=== PATIENT | female | born 1940 | race Caucasian/White ===

== ENCOUNTER 2016-11-29 11:57 | Emergency (ER) | payer OTHER ==
--- NOTE | 2016-11-29 16:23 | DIAGNOSTIC IMAGING REPORT ---
PROCEDURE: XR CHEST 1 VIEW INDICATION: POST CENTRAL LINE TECHNIQUE: Portable AP view 03:52 p.m. COMPARISON: None available FINDINGS: There is a new central line on the right. The tip is in the SVC. There is no pneumothorax. Lungs are clear. Heart is mildly enlarged. Thorax is normal. IMPRESSION: 1. New central line on the right. Tip in the SVC. 2. Mild cardiomegaly. Lungs clear.
--- NOTE | 2016-11-29 16:34 | ED CLINICAL REPORT ---
Clinical Report - Physicians/Mid Levels [facility] [address] [place] [address] 11/29/2016 11:59 Patient: DARI MEHTA Time Seen: 12:16. Arrived- By ambulance. Historian- patient, EMS personnel and family. HISTORY OF PRESENT ILLNESS Chief Complaint: VOMITING. This started yesterday and is still present but is better now. No recent travel. She has had nausea and vomiting. No diarrhea, black stools, bloody stools, abdominal pain or constipation. No flank pain, history of possible bad food exposure, known contact with a sick individual or change in routine. Has not recently been camping or on antibiotics. The illness is described as moderate. (Pt states that she had a flu shot several days ago, and started noticing that it was hard to keep her sugars down. Pt states she was not feeling ill in any other way. Pt states that she started vomiting yesterday. Sons state pt has had periods of confusion on and off since yesterday. Per medics, pt's daughter gave her "3 clicks" of her insulin before transport (they do not know how many units/click), but pt's BS is still reading >500.). Similar symptoms previously: Recent medical care: Not recently seen/assessed. REVIEW OF SYSTEMS No fever, muscle aches, difficulty with urination, dark urine or headache. No dizziness, sore throat, cough, chest pain or difficulty breathing. No excessive urination, skin rash, jaundice, back pain or fainting episodes. No blurred vision. All systems otherwise negative, except as recorded above. PAST HISTORY Problems: Thyroid Disease. Hypertension. Diabetes Mellitus Type 2. Additional Surgeries: no known surgeries. Medications: Levothyroxine 50 mcg daily. Metformin 500 mg daily. Lisinopril 20 mg daily. Allergies: No Known Drug Allergy. SOCIAL HISTORY Never smoker. No alcohol use or drug use. ADDITIONAL NOTES The nursing notes have been reviewed. PHYSICAL EXAM Vital Signs: 11/29/2016 12:06 BP: 106/58. HR: 108. RR: 20. O2 saturation: 95%. Temp: 98.6 F. Pain level now: 0/10. Have been reviewed. Appearance: Alert. Oriented X3. No acute distress. Eyes: Pupils equal, round and reactive to light. Eyes normal inspection. ENT: Nose normal. Neck: Normal inspection. Neck supple. CVS: Normal heart rate and rhythm. Heart sounds normal. Pulses normal. Respiratory: No respiratory distress. Breath sounds normal. Abdomen: Soft and nontender. Back: Normal inspection. No CVA tenderness. Skin: Skin warm and dry. Normal skin color. No rash. Normal skin turgor. Extremities: Extremities exhibit normal ROM. No lower extremity edema. Neuro: Oriented X 3. No motor deficit. No sensory deficit. LABS, X-RAYS, AND EKG EKG: EKG time: (1241). Rate: 102. Regular narrow-complex tachycardia. Sinus tachycardia. Normal P waves. Normal HEIDY. Normal axis. Normal QT and QTc. Marked ST depression in lead II, V3, V4, V5 and V6 (2 mm). Prior EKG unavailable. The study has been interpreted contemporaneously by me. The study has been independently viewed by me. The EKG appears to be a good tracing. EKG #2: Rate: 102. Regular narrow-complex tachycardia. Sinus tachycardia. Normal P waves. Normal QRS complex. Normal axis. Normal QT and QTc. Marked ST depression in lead II, V3, V4, V5 and V6 (2 mm). EKG unchanged when compared with prior EKG. The study has been interpreted contemporaneously by me. The study has been independently viewed by me. The EKG appears to be a good tracing. I agree with and confirm the computer reading of the EKG. Rhythm Strip #1: Time: (1216). Rate= 105. Sinus tachycardia. Regular rhythm. Narrow QRS complexes. No ectopy. Conduction normal. Normal ST segments and T waves. The study was interpreted by me. Chest X-ray: No acute disease. Normal lung markings present. Normal heart size. Mediastinum normal. Great vessels normal. Soft tissues normal. No infiltrate. No fracture. No bony lesion present. (R subclavian central line is in good placement.). Views: AP (portable). Technique: good. The X-rays were independently viewed by me, interpreted by the radiologist and contemporaneously by me and discussed with the radiologist. Prior films were not available for comparison. Laboratory Tests: UA-Culture if indicated: (BRENNAN: 11/29/2016 13:00) ( [facility] 11/29/2016 13:32) Final results Test Result Flag Units (Reference) URINE COLOR YELLOW URINE APPEARANCE CLEAR URINE GLUCOSE 3+ (NEGATIVE) URINE BILIRUBIN NEGATIVE (NEGATIVE) URINE KETONE 3+ (NEGATIVE) URINE SPECIFIC GRAVITY 1.015 (1.010-1.030) URINE PH 5.5 (5.0-8.0) URINE PROTEIN NEGATIVE (NEGATIVE) URINE UROBILINOGEN 0.2 EU/dL (0.2-1.0) URINE NITRITE NEGATIVE (NEGATIVE) URINE BLOOD 1+ (NEGATIVE) URINE LEUK ESTERASE NEGATIVE (NEGATIVE) URINE RBC 0-1 rbc/hpf (0-1) URINE WBC 1-3 wbc/hpf (0-1) URINE EPITHELIAL CELLS 1-3 EPI/hpf (0-5) URINE BACTERIA TRACE (<1+) (NONE SEEN) URINE COMMENT CULT NOT INDICATED URINE CULTURES ARE SET-UP BASED ON THE FOLLOWING CRITERIA:POSITIVE NITRITEPOSITIVE LEUKOCYTE ESTERASEGREATER THAN 10 WHITE BLOOD CELLSMODERATE (2+) OR GREATER BACTERIA CBC w Diff: (BRENNAN: 11/29/2016 12:05) ( [facility] 11/29/2016 12:37) Final results Test Result Flag Units (Reference) WHITE BLOOD COUNT 14.6 H K/uL (4.5-11.5) RED BLOOD COUNT 4.11 M/uL (4.00-5.20) HEMOGLOBIN 12.7 gm/dL (12.0-16.0) HEMATOCRIT 39.0 % (36.0-46.0) MEAN CELL VOLUME 95 fL (80-100) MEAN CORPUSCULAR HGB 31 pg (26-34) MEAN CORPUSCULAR HGB CONC 33 g/dL (31-37) RED CELL DISTRIBUTION WIDTH 14.0 % (11.6-14.8) PLATELET COUNT 255 K/uL (150-400) NEUTROPHIL % 93.3 H % (50-75) LYMPH % 4.4 L % (25-40) MONO % 2.2 L % (3-14) EOSINOPHIL % 0.1 % (0-4) BASOPHIL % 0 % (0-2) PT with INR: (BRENNAN: 11/29/2016 12:05) ( [facility] 11/29/2016 16:36) Final results Test Result Flag Units (Reference) INR 1.0 (0.8-1.2) Low Intensity Therapy: INR 1.5-2.0 PT range 18.5-23.1Mod.Intensity Therapy: INR 2.0-3.0 PT range 23.1-31.5High Intensity Therapy: INR 2.5-3.5 PT range 27.4-35.5High Intensity Therapy 2: INR 3.0-4.0 PT range 31.5-39.3 APTT 25 SECONDS (24-34) Troponin-I: (BRENNAN: 11/29/2016 14:35) ( [facility] 11/29/2016 15:07) Final results Test Result Flag Units (Reference) TROPONIN I 7.44 H ng/mL (0.00-1.5) CRITICAL RESULTS CALLEDCalled to JUANITO KELLEY ED 11/29/16 [id number] 2 patient identifiers used? YWas the result read back? YTROPONIN REFERENCE RANGE:<0.1 NEGATIVE0.1-1.5 INDETERMINANT>1.5 POSITIVE CPK: (BRENNAN: 11/29/2016 12:45) ( [facility] 11/29/2016 13:11) Final results Test Result Flag Units (Reference) CPK 91 U/L (24-260) TROPONIN I 1.04 ng/mL (0.00-1.5) TROPONIN REFERENCE RANGE:<0.1 NEGATIVE0.1-1.5 INDETERMINANT>1.5 POSITIVE CMP: (BRENNAN: 11/29/2016 12:05) ( [facility] 11/29/2016 13:16) Final results Test Result Flag Units (Reference) GLUCOSE 594 *H mg/dL (70-110) CRITICAL RESULTS CALLEDCalled to ELVER CASHIER MANAGER 11/29/16 1309Were 2 patient identifiers used? YWas the result read back? Y BUN 29 H mg/dL (7-18) CREATININE 1.5 H mg/dL (0.6-1.3) Estimated GFR 35.98 mL/min Estimated GFR- 43.61 mL/min Note: Persistent reduction over 3 months in eGFR<60 mL/min/1.73 m2 defines CKD. Patients with eGFR values>=60 mL/min/1.73 m2 may also have CKD if evidence ofpersistent proteinuria. Additional information may be foundat [email or web address].org. SODIUM 140 mmol/L (136-145) POTASSIUM 5.0 mmol/L (3.5-5.1) CHLORIDE 99 mmol/L (98-107) CARBON DIOXIDE 10 *L mmol/L (21-32) CRITICAL RESULTS CALLEDCalled to ELVER CASHIER MANAGER 11/29/16 [id number] 2 patient identifiers used? YWas the result read back? Y CALCIUM 10.2 H mg/dL (8.5-10.1) TOTAL PROTEIN 6.9 g/dL (6.4-8.2) ALBUMIN 3.4 g/dL (3.3-5.0) BILIRUBIN, TOTAL 0.9 mg/dL (0.0-1.0) ALKALINE PHOSPHATASE 89 U/L (46-116) AST (SGOT) 26 U/L (15-37) ALT (SGPT) 18 U/L (12-78) ACETONE, SERUM QUALITATIVE POSITIVE (NEGATIVE) SMALL ABG: (BRENNAN: 11/29/2016 14:01) ( [facility] 11/29/2016 14:40) Final results Test Result Flag Units (Reference) FIO2 21 % (20-101) ABG MODE OF DELIVERY RA MODIFIED KALLIE TEST POSITIVE? YES ARTERIAL BLOOD GAS SITE LR ARTERIAL BLOOD GAS pH 7.15 *L (7.35-7.45) ABG PCO2 19.8 *L mmHg (35-45) ABG PO2 117.0 H mmHg (60.0-80.0) ABG BASE EXCESS -20.1 *L mmol/L (-6.0--6.0) ABG HCO3 6.9 *L mmol/L (20.0-26.0) ABG TCO2 7.6 *L mmol/L (24.0-30.0) ABG SAT O2 98.5 % (95.1-100.0) ABG TOTAL HEMOGLOBIN 11.4 L g/dL (12.0-16.0) ABG O2 HEMOGLOBIN 96.7 % (95.0-100.0) ABG CARBOXYHEMOGLOBIN 1.5 % (0.5-1.5) ABG METHEMOGLOBIN 0.3 L % (0.4-1.5) ABG RHEMOGLOBIN 1.5 % . Pulse Oximetry: 11/29/2016 12:06 O2 saturation: 95%. (FIO2 - room air). Interpretation: normal. PROGRESS AND PROCEDURES Central Line Placement: A central line was placed in the right subclavian vein. The risks of the procedure, benefits and alternatives were explained. Consent precluded by urgency of clinical situation. O2 administered. Placed on pulse oximeter and cardiac technician. Hand hygiene observed, sterile barrier precautions adhered to (cap, mask, gown, gloves and large sterile sheet) and chlorhexidine skin antisepsis used. Local anesthetic infiltrated. Triple lumen central line placed using Seldinger technique. Good blood return observed. Catheter was secured. Antibiotic ointment applied. Dressing applied. The patient was clinically stable following the procedure. Post-procedure X-ray showed no pneumothorax and good catheter tip position. Course of Care: PT was given 2 liters of NS, and worked up for potential causes of her hyperglycemia. Her blood work showed a glucose of 589 and pt was given regular insulin 10 units IV for this. Repeat glucose 30 min later was 485. Pt's acetone was positive, and her ABG did show a pH of 7.15, so she was started on an insulin drip at 6 units/hr. Pt's initial EKG had shown ST depressions in the lateral leads, and initial troponin was indeterminate at 1.04. I did speak with Dr. Rodriguez (cardiology, [facility]) regarding this, and after reviewing the EKG's (faxed to him) with Dr. Forte, the production cost estimator, he felt that this was not an acute OH. Pt was given ASA here in the ED, and I did order a repeat troponin and EKG. EKG was unchanged, but troponin level had risen to 7.44 in less than 2 hours. I did speak with Dr. Rodriguez again, and he did not feel the pt should be taken to [facility] emergently, but that her DKA should be stabilized first, with plan for [facility] in the near future. He did request a heparin drip, beta blockers, an BRIAN inhibiter, and Plavix, in addition to the ASA. The initial dose of lopressor was given IV, but after only 2.5 mg, pt's SBP dropped to 90. Pressure continued to dwindle over the next hour, and at 70, pt was started on a low-dose dopamine drip, to which she did respond very well. The lisinopril and any further beta blockers were held at this time. Pt otherwise remained stable in the ED, and was accepted for transfer to [facility] CCU. Critical care performed (90 minutes). Time is exclusive of separately billable procedures. Time includes: direct patient care, patient reassessment, coordination of patient care, interpretation of data (laboratory data, pulse oximetry, arterial blood gases, chest xrays, prior electrocardiograms and cardiac output measurements), review of patient's medical records, medical consultation, family consultation regarding treatment decisions and documentation of patient care- see progress notes. Procedures excluded from critical care time: central intravenous line placement- see progress notes. The patient required critical care due to the acute impairment of vital organ systems (cardiovascular, endocrine and metabolic) and a high probability of imminent and life threatening deterioration. Numerous emergent and urgent interventions were required to prevent sudden life threatening deterioration. Discussed case with on-call health care provider, (Jennifer/brent/Michele). Discussed case with hospitalist, (Dr. Boss/Michele: accepts pt in transfer.). Patient and family counseled in person regarding the patient's critical condition, test results, diagnosis and need for additional testing and transfer. Concerns were addressed. Old medical records reviewed. Disposition: Benefits, risks and alternatives to transfer explained to patient and family. Transferred to [facility]. Condition: critical. CLINICAL IMPRESSION Type I diabetic ketoacidosis without coma. Profound hypotension due to drugs. Acute myocardial infarction with elevated markers, EKG changes and no ST elevation (NSTEMI). Aspirin administered in ED. (Electronically signed by Yue Coburn MD 11/29/2016 19:23)
--- NOTE | 2016-11-29 16:34 | ED CLINICAL REPORT ---
Clinical Report - Physicians/Mid Levels [facility] [address] [place] [address] 11/29/2016 11:59 Patient: DARI MEHTA Time Seen: 12:16. Arrived- By ambulance. Historian- patient, EMS personnel and family. HISTORY OF PRESENT ILLNESS Chief Complaint: VOMITING. This started yesterday and is still present but is better now. No recent travel. She has had nausea and vomiting. No diarrhea, black stools, bloody stools, abdominal pain or constipation. No flank pain, history of possible bad food exposure, known contact with a sick individual or change in routine. Has not recently been camping or on antibiotics. The illness is described as moderate. (Pt states that she had a flu shot several days ago, and started noticing that it was hard to keep her sugars down. Pt states she was not feeling ill in any other way. Pt states that she started vomiting yesterday. Sons state pt has had periods of confusion on and off since yesterday. Per medics, pt's daughter gave her "3 clicks" of her insulin before transport (they do not know how many units/click), but pt's BS is still reading >500.). Similar symptoms previously: Recent medical care: Not recently seen/assessed. REVIEW OF SYSTEMS No fever, muscle aches, difficulty with urination, dark urine or headache. No dizziness, sore throat, cough, chest pain or difficulty breathing. No excessive urination, skin rash, jaundice, back pain or fainting episodes. No blurred vision. All systems otherwise negative, except as recorded above. PAST HISTORY Problems: Thyroid Disease. Hypertension. Diabetes Mellitus Type 2. Additional Surgeries: no known surgeries. Medications: Levothyroxine 50 mcg daily. Metformin 500 mg daily. Lisinopril 20 mg daily. Allergies: No Known Drug Allergy. SOCIAL HISTORY Never smoker. No alcohol use or drug use. ADDITIONAL NOTES The nursing notes have been reviewed. PHYSICAL EXAM Vital Signs: 11/29/2016 12:06 BP: 106/58. HR: 108. RR: 20. O2 saturation: 95%. Temp: 98.6 F. Pain level now: 0/10. Have been reviewed. Appearance: Alert. Oriented X3. No acute distress. Eyes: Pupils equal, round and reactive to light. Eyes normal inspection. ENT: Nose normal. Neck: Normal inspection. Neck supple. CVS: Normal heart rate and rhythm. Heart sounds normal. Pulses normal. Respiratory: No respiratory distress. Breath sounds normal. Abdomen: Soft and nontender. Back: Normal inspection. No CVA tenderness. Skin: Skin warm and dry. Normal skin color. No rash. Normal skin turgor. Extremities: Extremities exhibit normal ROM. No lower extremity edema. Neuro: Oriented X 3. No motor deficit. No sensory deficit. LABS, X-RAYS, AND EKG EKG: EKG time: (1241). Rate: 102. Regular narrow-complex tachycardia. Sinus tachycardia. Normal P waves. Normal HEIDY. Normal axis. Normal QT and QTc. Marked ST depression in lead II, V3, V4, V5 and V6 (2 mm). Prior EKG unavailable. The study has been interpreted contemporaneously by me. The study has been independently viewed by me. The EKG appears to be a good tracing. EKG #2: Rate: 102. Regular narrow-complex tachycardia. Sinus tachycardia. Normal P waves. Normal QRS complex. Normal axis. Normal QT and QTc. Marked ST depression in lead II, V3, V4, V5 and V6 (2 mm). EKG unchanged when compared with prior EKG. The study has been interpreted contemporaneously by me. The study has been independently viewed by me. The EKG appears to be a good tracing. I agree with and confirm the computer reading of the EKG. Rhythm Strip #1: Time: (1216). Rate= 105. Sinus tachycardia. Regular rhythm. Narrow QRS complexes. No ectopy. Conduction normal. Normal ST segments and T waves. The study was interpreted by me. Chest X-ray: No acute disease. Normal lung markings present. Normal heart size. Mediastinum normal. Great vessels normal. Soft tissues normal. No infiltrate. No fracture. No bony lesion present. (R subclavian central line is in good placement.). Views: AP (portable). Technique: good. The X-rays were independently viewed by me, interpreted by the radiologist and contemporaneously by me and discussed with the radiologist. Prior films were not available for comparison. Laboratory Tests: UA-Culture if indicated: (BRENNAN: 11/29/2016 13:00) ( [facility] Final results Test Result Flag Units (Reference) URINE COLOR YELLOW URINE APPEARANCE CLEAR URINE GLUCOSE 3+ (NEGATIVE) URINE BILIRUBIN NEGATIVE (NEGATIVE) URINE KETONE 3+ (NEGATIVE) URINE SPECIFIC GRAVITY 1.015 (1.010-1.030) URINE PH 5.5 (5.0-8.0) URINE PROTEIN NEGATIVE (NEGATIVE) URINE UROBILINOGEN 0.2 EU/dL (0.2-1.0) URINE NITRITE NEGATIVE (NEGATIVE) URINE BLOOD 1+ (NEGATIVE) URINE LEUK ESTERASE NEGATIVE (NEGATIVE) URINE RBC 0-1 rbc/hpf (0-1) URINE WBC 1-3 wbc/hpf (0-1) URINE EPITHELIAL CELLS 1-3 EPI/hpf (0-5) URINE BACTERIA TRACE (<1+) (NONE SEEN) URINE COMMENT CULT NOT INDICATED URINE CULTURES ARE SET-UP BASED ON THE FOLLOWING CRITERIA:POSITIVE NITRITEPOSITIVE LEUKOCYTE ESTERASEGREATER THAN 10 WHITE BLOOD CELLSMODERATE (2+) OR GREATER BACTERIA CBC w Diff: (BRENNAN: 11/29/2016 12:05) ( [facility] 12:37) Final results Test Result Flag Units (Reference) WHITE BLOOD COUNT 14.6 H K/uL (4.5-11.5) RED BLOOD COUNT 4.11 M/uL (4.00-5.20) HEMOGLOBIN 12.7 gm/dL (12.0-16.0) HEMATOCRIT 39.0 % (36.0-46.0) MEAN CELL VOLUME 95 fL (80-100) MEAN CORPUSCULAR HGB 31 pg (26-34) MEAN CORPUSCULAR HGB CONC 33 g/dL (31-37) RED CELL DISTRIBUTION WIDTH 14.0 % (11.6-14.8) PLATELET COUNT 255 K/uL (150-400) NEUTROPHIL % 93.3 H % (50-75) LYMPH % 4.4 L % (25-40) MONO % 2.2 L % (3-14) EOSINOPHIL % 0.1 % (0-4) BASOPHIL % 0 % (0-2) PT with INR: (BRENNAN: 11/29/2016 12:05) ( [facility] 11/29/2016 16:36) Final results Test Result Flag Units (Reference) INR 1.0 (0.8-1.2) Low Intensity Therapy: INR 1.5-2.0 PT range 18.5-23.1Mod.Intensity Therapy: INR 2.0-3.0 PT range 23.1-31.5High Intensity Therapy: INR 2.5-3.5 PT range 27.4-35.5High Intensity Therapy 2: INR 3.0-4.0 PT range 31.5-39.3 APTT 25 SECONDS (24-34) Troponin-I: (BRENNAN: 11/29/2016 14:35) ( [facility] 11/29/2016 15:07) Final results Test Result Flag Units (Reference) TROPONIN I 7.44 H ng/mL (0.00-1.5) CRITICAL RESULTS CALLEDCalled to JUANITO KELLEY ED 11/29/16 [id number] 2 patient identifiers used? YWas the result read back? YTROPONIN REFERENCE RANGE:<0.1 NEGATIVE0.1-1.5 INDETERMINANT>1.5 POSITIVE CPK: (BRENNAN: 11/29/2016 12:45) ( [facility] 11/29/2016 13:11) Final results Test Result Flag Units (Reference) CPK 91 U/L (24-260) TROPONIN I 1.04 ng/mL (0.00-1.5) TROPONIN REFERENCE RANGE:<0.1 NEGATIVE0.1-1.5 INDETERMINANT>1.5 POSITIVE CMP: (BRENNAN: 11/29/2016 12:05) ( [facility] 11/29/2016 13:16) Final results Test Result Flag Units (Reference) GLUCOSE 594 *H mg/dL (70-110) CRITICAL RESULTS CALLEDCalled to ELVER GLAZIER HELPER 11/29/16 1309Were 2 patient identifiers used? YWas the result read back? Y BUN 29 H mg/dL (7-18) CREATININE 1.5 H mg/dL (0.6-1.3) Estimated GFR 35.98 mL/min Estimated GFR- 43.61 mL/min Note: Persistent reduction over 3 months in eGFR<60 mL/min/1.73 m2 defines CKD. Patients with eGFR values>=60 mL/min/1.73 m2 may also have CKD if evidence ofpersistent proteinuria. Additional information may be foundat www.kidney.org. SODIUM 140 mmol/L (136-145) POTASSIUM 5.0 mmol/L (3.5-5.1) CHLORIDE 99 mmol/L (98-107) CARBON DIOXIDE 10 *L mmol/L (21-32) CRITICAL RESULTS CALLEDCalled to ELVER GLAZIER HELPER 11/29/16 [id number] 2 patient identifiers used? YWas the result read back? Y CALCIUM 10.2 H mg/dL (8.5-10.1) TOTAL PROTEIN 6.9 g/dL (6.4-8.2) ALBUMIN 3.4 g/dL (3.3-5.0) BILIRUBIN, TOTAL 0.9 mg/dL (0.0-1.0) ALKALINE PHOSPHATASE 89 U/L (46-116) AST (SGOT) 26 U/L (15-37) ALT (SGPT) 18 U/L (12-78) ACETONE, SERUM QUALITATIVE POSITIVE (NEGATIVE) SMALL ABG: (BRENNAN: 11/29/2016 14:01) ( [facility] 11/29/2016 14:40) Final results Test Result Flag Units (Reference) FIO2 21 % (20-101) ABG MODE OF DELIVERY RA MODIFIED KALLIE TEST POSITIVE? YES ARTERIAL BLOOD GAS SITE LR ARTERIAL BLOOD GAS pH 7.15 *L (7.35-7.45) ABG PCO2 19.8 *L mmHg (35-45) ABG PO2 117.0 H mmHg (60.0-80.0) ABG BASE EXCESS -20.1 *L mmol/L (-6.0--6.0) ABG HCO3 6.9 *L mmol/L (20.0-26.0) ABG TCO2 7.6 *L mmol/L (24.0-30.0) ABG SAT O2 98.5 % (95.1-100.0) ABG TOTAL HEMOGLOBIN 11.4 L g/dL (12.0-16.0) ABG O2 HEMOGLOBIN 96.7 % (95.0-100.0) ABG CARBOXYHEMOGLOBIN 1.5 % (0.5-1.5) ABG METHEMOGLOBIN 0.3 L % (0.4-1.5) ABG RHEMOGLOBIN 1.5 % . Pulse Oximetry: 11/29/2016 12:06 O2 saturation: 95%. (FIO2 - room air). Interpretation: normal. PROGRESS AND PROCEDURES Central Line Placement: A central line was placed in the right subclavian vein. The risks of the procedure, benefits and alternatives were explained. Consent precluded by urgency of clinical situation. O2 administered. Placed on pulse oximeter and cardiac catheterization technologist. Hand hygiene observed, sterile barrier precautions adhered to (cap, mask, gown, gloves and large sterile sheet) and chlorhexidine skin antisepsis used. Local anesthetic infiltrated. Triple lumen central line placed using Seldinger technique. Good blood return observed. Catheter was secured. Antibiotic ointment applied. Dressing applied. The patient was clinically stable following the procedure. Post-procedure X-ray showed no pneumothorax and good catheter tip position. Course of Care: PT was given 2 liters of NS, and worked up for potential causes of her hyperglycemia. Her blood work showed a glucose of 589 and pt was given regular insulin 10 units IV for this. Repeat glucose 30 min later was 485. Pt's acetone was positive, and her ABG did show a pH of 7.15, so she was started on an insulin drip at 6 units/hr. Pt's initial EKG had shown ST depressions in the lateral leads, and initial troponin was indeterminate at 1.04. I did speak with Dr. Rodriguez (cardiology, [facility]) regarding this, and after reviewing the EKG's (faxed to him) with Dr. Forte, the vendor specialist, he felt that this was not an acute ID. Pt was given ASA here in the ED, and I did order a repeat troponin and EKG. EKG was unchanged, but troponin level had risen to 7.44 in less than 2 hours. I did speak with Dr. Rodriguez again, and he did not feel the pt should be taken to calibration laboratory technician emergently, but that her DKA should be stabilized first, with plan for calibration laboratory technician in the near future. He did request a heparin drip, beta blockers, an BRIAN inhibiter, and Plavix, in addition to the ASA. The initial dose of lopressor was given IV, but after only 2.5 mg, pt's SBP dropped to 90. Pressure continued to dwindle over the next hour, and at 70, pt was started on a low-dose dopamine drip, to which she did respond very well. The lisinopril and any further beta blockers were held at this time. Pt otherwise remained stable in the ED, and was accepted for transfer to [facility]. Critical care performed (90 minutes). Time is exclusive of separately billable procedures. Time includes: direct patient care, patient reassessment, coordination of patient care, interpretation of data (laboratory data, pulse oximetry, arterial blood gases, chest xrays, prior electrocardiograms and cardiac output measurements), review of patient's medical records, medical consultation, family consultation regarding treatment decisions and documentation of patient care- see progress notes. Procedures excluded from critical care time: central intravenous line placement- see progress notes. The patient required critical care due to the acute impairment of vital organ systems (cardiovascular, endocrine and metabolic) and a high probability of imminent and life threatening deterioration. Numerous emergent and urgent interventions were required to prevent sudden life threatening deterioration. Discussed case with on-call health care provider, (Jennifer/brent/Michele). Discussed case with hospitalist, (Dr. Boss/Michele: accepts pt in transfer.). Patient and family counseled in person regarding the patient's critical condition, test results, diagnosis and need for additional testing and transfer. Concerns were addressed. Old medical records reviewed. Disposition: Benefits, risks and alternatives to transfer explained to patient and family. Transferred to [facility]. Condition: critical. CLINICAL IMPRESSION Type I diabetic ketoacidosis without coma. Profound hypotension due to drugs. Acute myocardial infarction with elevated markers, EKG changes and no ST elevation (NSTEMI). Aspirin administered in ED. (Electronically signed by Yue Coburn MD 11/29/2016 19:23)
--- NOTE | 2016-11-29 16:34 | ED ORDER SUMMARY ---
..... Patient: DARI MEHTA OrderSheet [facility] VisitID: [id number] [place] [address] 76y, F Registration Date/Time: 11/29/2016 ORDER SHEET Weight: 83.9 kg (stated) Allergies: No Known Drug Allergy GENERAL ORDERS: It Infrastructure Specialist (Continuous) (12:11/29/2016 Oscar DUONG) (12:26 SStone R.N.) CBC w Diff Urgent (12:11/29/2016 Oscar DUONG) (12:26 SStone R.N.) (Ack 12:26 LTapper) CMP Urgent (12:11/29/2016 Oscar DUONG) (12:26 SStone R.N.) (Ack 12:26 LTapper) UA-Culture if indicated Urgent (12:11/29/2016 Oscar DUONG) (Ack 12:26 LTapper) (16:23 SStone R.N.) Acetone, Serum Urgent (12:11/29/2016 Oscar DUONG) (Ack 12:26 LTapper) (12:44 SStone R.N.) Pulse oximeter (12:11/29/2016 Oscar DUONG) (12:26 SStone R.N.) EKG - ER Stat (12:11/29/2016 Oscar DUONG) (Ack 12:26 LTapper) (12:44 SStone R.N.) Troponin-I Urgent (12:45 11/29/2016 Oscar DUONG) (Ack 12:59 LTapper) (14:42 LTapper) CPK Urgent (12:45 11/29/2016 Oscar DUONG) (Ack 12:59 LTapper) (15:55 JSimbeck R.N.) ABG (G) Urgent (14:11/29/2016 Oscar DUONG) (Ack 14:13 LTapper) (14:42 LTapper) Troponin-I Urgent (14:11/29/2016 Oscar DUONG) (Ack 14:13 LTapper) (14:44 JSimbeck R.N.) EKG - ER Repeat Stat (14:11/29/2016 Oscar DUONG) (Ack 14:13 LTapper) (14:30 RKaruga) Chest 1V Urgent (15:44 11/29/2016 LTapper written order Oscar DUONG) (Ack 15:53 LTapper) (15:55 JSimbeck R.N.) PT with INR Urgent (15:56 11/29/2016 Oscar DUONG) (Ack 16:04 LTapper) (17:13 JSmontanaeck R.N.) PTT Urgent (15:56 11/29/2016 Oscar DUONG) (Ack 16:04 LTapper) (17:13 JSimbeck R.N.) PT with INR Urgent (18:29 11/29/2016 LTapper written order Oscar DUONG) (Ack 18:33 LTapper) PTT Urgent (18:29 11/29/2016 LTapper written order Oscar DUONG) (Ack 18:33 LTapper) MEDICATION ORDERS: Aspirin PO 325 mg (Do not crush or chew, NOW) (14:00 11/29/2016 Oscar DUONG) (Ack 14:04 SStone R.N.) (14:11 SStone R.N.) Plavix PO 300 mg (HIGH ALERT MEDICATION, NOW) (15:57 11/29/2016 Oscar DUONG) (16:52 LWhalen R.N.) - (Lisinopril 5 mg PO x 1) (15:59 11/29/2016 Oscar DUONG) (Hold 16:51 LWhalen R.N.) (Cancelled: Verbal per [id number] JSmontanaeck R.N.) IV FLUIDS: IV NS : initial bolus 1000 mL (1000 mL/hr), then 1000 mL/hr for X3 (NOW) (12:21 11/29/2016 Oscar DUONG) (12:26 SStone R.N.) Zofran IV 8 mg (NOW) (12:22 11/29/2016 Oscar DUONG) (12:44 SStone R.N.) Insulin Reg IV 10 units (HIGH ALERT MEDICATION, NOW) (14:00 11/29/2016 Oscar DUONG) (Ack 14:04 SStone R.N.) (14:11 SStone R.N.) Insulin Reg Drip IV : initial bolus 6 units, then 6 units/hr (HIGH ALERT MEDICATION, NOW) (14:57 11/29/2016 Oscar DUONG) (Ack 15:55 Barrie R.N.) (15:58 LWnick R.N.) Lopressor IV 5 mg (Q 15 MIN X 3, hold for SBP <105) (15:57 11/29/2016 Oscar DUONG) (16:00 LWhalhal R.N.) Heparin IV : initial bolus 5,000 units, then 15 units/kg/hr (HIGH ALERT MEDICATION, NOW) (15:59 11/29/2016 Oscar DUONG) (16:25 LWnick R.N.) DOPamine Drip IV : 2.5mcg/kg/min (NOW) (17:15 11/29/2016 Barrie R.N. verbal order read back to Oscar DUONG) (17:17 Barrie R.N.) ORDER SHEET NOTES: [Electronically signed by Yue Coburn MD (19:23 11/29/2016)] [Electronically signed by Jessi Hein R.N. (11:12/03/2016)] [Electronically locked/signed by Jessi Hein R.N. (11:12/03/2016)]
--- NOTE | 2016-11-29 16:34 | ED ORDER SUMMARY ---
..... Patient: DARI MEHTA OrderSheet [facility] VisitID: [id number] [place] [address] 76y, F Registration Date/Time: 11/29/2016 ORDER SHEET Weight: 83.9 kg (stated) Allergies: No Known Drug Allergy GENERAL ORDERS: Publishing Agent (Continuous) (12:11/29/2016 Oscar DUONG) (12:26 SStone R.N.) CBC w Diff Urgent (12:11/29/2016 Oscar DUONG) (12:26 SStone R.N.) (Ack 12:26 LTapper) CMP Urgent (12:11/29/2016 Oscar DUONG) (12:26 SStone R.N.) (Ack 12:26 LTapper) UA-Culture if indicated Urgent (12:11/29/2016 Oscar DUONG) (Ack 12:26 LTapper) (16:23 SStone R.N.) Acetone, Serum Urgent (12:11/29/2016 Oscar DUONG) (Ack 12:26 LTapper) (12:44 SStone R.N.) Pulse oximeter (12:11/29/2016 Oscar DUONG) (12:26 SStone R.N.) EKG - ER Stat (12:11/29/2016 Oscar DUONG) (Ack 12:26 LTapper) (12:44 SStone R.N.) Troponin-I Urgent (12:45 11/29/2016 Oscar DUONG) (Ack 12:59 LTapper) (14:42 LTapper) CPK Urgent (12:45 11/29/2016 Oscar DUONG) (Ack 12:59 LTapper) (15:55 JSimbeck R.N.) ABG (G) Urgent (14:11/29/2016 Oscar DUONG) (Ack 14:13 LTapper) (14:42 LTapper) Troponin-I Urgent (14:11/29/2016 Oscar DUONG) (Ack 14:13 LTapper) (14:44 JSimbeck R.N.) EKG - ER Repeat Stat (14:11/29/2016 Oscar DUONG) (Ack 14:13 LTapper) (14:30 RKaruga) Chest 1V Urgent (15:44 11/29/2016 LTapper written order Oscar DUONG) (Ack 15:53 LTapper) (15:55 JSimbeck R.N.) PT with INR Urgent (15:56 11/29/2016 Oscar DUONG) (Ack 16:04 LTapper) (17:13 JSmontanaeck R.N.) PTT Urgent (15:56 11/29/2016 Oscar DUONG) (Ack 16:04 LTapper) (17:13 JSimbeck R.N.) PT with INR Urgent (18:29 11/29/2016 LTapper written order Oscar DUONG) (Ack 18:33 LTapper) PTT Urgent (18:29 11/29/2016 LTapper written order Oscar DUONG) (Ack 18:33 LTapper) MEDICATION ORDERS: Aspirin PO 325 mg (Do not crush or chew, NOW) (14:00 11/29/2016 Oscar DUONG) (Ack 14:04 SStone R.N.) (14:11 SStone R.N.) Plavix PO 300 mg (HIGH ALERT MEDICATION, NOW) (15:57 11/29/2016 Oscar DUONG) (16:52 LWhalen R.N.) - (Lisinopril 5 mg PO x 1) (15:59 11/29/2016 Oscar DUONG) (Hold 16:51 LWhalen R.N.) (Cancelled: Verbal per [id number] JSmontanaeck R.N.) IV FLUIDS: IV NS : initial bolus 1000 mL (1000 mL/hr), then 1000 mL/hr for X3 (NOW) (12:21 11/29/2016 Oscar DUONG) (12:26 SStone R.N.) Zofran IV 8 mg (NOW) (12:22 11/29/2016 Oscar DUONG) (12:44 SStone R.N.) Insulin Reg IV 10 units (HIGH ALERT MEDICATION, NOW) (14:00 11/29/2016 Oscar DUONG) (Ack 14:04 SStone R.N.) (14:11 SStone R.N.) Insulin Reg Drip IV : initial bolus 6 units, then 6 units/hr (HIGH ALERT MEDICATION, NOW) (14:57 11/29/2016 Oscar DUONG) (Ack 15:55 Barrie R.N.) (15:58 LWnick R.N.) Lopressor IV 5 mg (Q 15 MIN X 3, hold for SBP <105) (15:57 11/29/2016 Oscar DUONG) (16:00 LWhalhal R.N.) Heparin IV : initial bolus 5,000 units, then 15 units/kg/hr (HIGH ALERT MEDICATION, NOW) (15:59 11/29/2016 Oscar DUONG) (16:25 LWnick R.N.) DOPamine Drip IV : 2.5mcg/kg/min (NOW) (17:15 11/29/2016 Barrie R.N. verbal order read back to Oscar DUONG) (17:17 Barrie R.N.) ORDER SHEET NOTES: [Electronically signed by Yue Coburn MD (19:23 11/29/2016)] [Electronically signed by Jessi Hein R.N. (11:12/03/2016)] [Electronically locked/signed by Jessi Hein R.N. (11:12/03/2016)]
--- NOTE | 2016-11-29 16:34 | ED NURSING NOTES ---
Clinical Report - Nurses [facility] [address] [place] [address] 11/29/2016 11:59 Patient: DARI MEHTA TRIAGE Triage time 12:06. Acuity: LEVEL 2. Chief Complaint: (High blood sugar x 2 days, vomiting x 1 day). Alert. No acute distress. SEPSIS SCREEN: Sepsis Screen: negative. Negative (no infection suspected/documented). Heart rate greater than 90. --12:15 Debra Leal R.N. 12:06 11/29/16. BP: 106/58. HR: 108. RR: 20. O2 saturation: 95%. Temp: 98.6 F. Pain level now: 0/10. --12:15 Debra Leal R.N. Weight: 83.9 kg stated. Height/Length: 63 inches Per Patient. BMI: 32.8. --12:11 Debra Leal R.N. Medications Lisinopril 20 mg daily. --12:12 Debra Leal R.N. Metformin 500 mg daily. --12:13 Debra Leal R.N. Levothyroxine 50 mcg daily. --12:13 Debra Leal R.N. Allergies No Known Drug Allergy. --12:11 Debra Leal R.N. History Arrived by EMS, and ([place]). Historian: patient and family. Onset. (2 days ago. family reports confusion this morning. Pt. lives at home alone and cares for herself independently.). ( vomiting). Treatment [employer] SECRETARY: None. (blood sugar 475 for EMS). See EMS report. PAST MEDICAL HX: Diabetes mellitus. Hypertension. SOCIAL HX: Never smoker. No alcohol use or drug use. No infectious disease exposure. NUTRITIONAL RISK ASSESSMENT: The nutritional risk assessment revealed no deficiencies. FUNCTIONAL ASSESSMENT: Functional assessment performed: independent with the activities of daily living. --12:15 Debra Leal R.N. PROBLEMS: Thyroid Disease. Hypertension. Diabetes Mellitus Type 2. --12:08 Debra Leal R.N. Interventions ID band on patient. To treatment room. --12:15 Debra Leal R.N. PHYSICAL ASSESSMENT GENERAL / NEURO / PSYCH: Oriented X 4. Appears in no acute distress. HEENT: Pupils equal, round and reactive to light. No facial asymmetry noted. ( dry mucous membranes). RESPIRATORY: Respirations not labored. Chest nontender. Breath sounds within normal limits. CVS: Capillary refill less than 2 seconds. Pulses within normal limits. GI / : Abdomen soft and nontender and normal bowel sounds. SKIN: Skin intact. Skin is warm and dry. Poor skin turgor. --12:18 Debra Leal R.N. NURSING PROGRESS NOTES 12:16 11/29/2016 Site #1 started via IV in the right antecubital space with an 20g angiocath; one attempt. Blood drawn: rainbow set. Labeled in the presence of the patient. Saline lock flushed with 10 mL saline. --12:16 Debra Leal R.N. Monitoring of patient in place. Blood samples drawn. Finger stick glucose: >500.; performed by nurse; result shown to the ED physician. Patient gowned. Reassurance given. Patient identifiers checked. Call light placed in reach. Side rails up x 2. Bed placed in lowest position. --12:17 Debra Leal R.N. 12:26 11/29/2016 Started bag #1 1000 mL IV Fluids IV NS (Saline); at 1000 mL/hr over 1 hour(s) via site #1 --12:26 Debra Leal R.N. 12:36 11/29/16. BP: 104/46. HR: 103. RR: 20. O2 saturation: 99%. --12:37 Debra Leal R.N. EKG was performed by a tech and shown to the ED physician. --12:37 Debra Leal R.N. 12:44 11/29/2016 Zofran (Ondansetron HCl) IVP 8 mg given over 2 minute(s) via site #1. --12:44 Debra Leal R.N. Critical value relayed to ED by [facility]. Critical value received by allie casanova. C02 9.5. Glucose: 594. ED physician notifed of critical value. --13:09 Debra Leal R.N. 13:13 11/29/16. BP: 106/50. HR: 99. RR: 20. O2 saturation: 98%. --13:14 Debra Leal R.N. ( daughter at bedside. call light within reach. no needs at this time.). --13:14 Debra Leal R.N. EKG time: (12:41 PM). EKG was performed by a tech and shown to the ED physician. --13:15 Heather Moura 13:17 11/29/2016 IV Fluids IV NS Bag Change: bag #1 completed. Total amount infused: 1000. STARTED bag #2 (1000 mL) at 1000 mL/hr via IV pump. IV patency established. --13:17 Debra Leal R.N. Patient ID band checked for patient name and birthdate: patient confirmed. Instructions provided to collect clean catch urine and patient verbalized understanding urine collected with return of yellow-colored clear urine, sediment noted; odor is normal; sample sent to lab for urinalysis and culture. Specimen labeled in the presence of the patient (Pt wasnt able to hold long enough to wipe for a clean catch). --13:19 Heather Moura 13:30 11/29/16. BP: 109/45. HR: 95. RR: 18. --13:42 Debra Leal R.N. 14:11 11/29/2016 Aspirin PO Tablets 325 mg given. --14:11 Debra Leal R.N. 14:11 11/29/2016 Insulin REG IVP 10 unit given over 2 minute(s) via site #1. Allergies verified and confirmed 5 rights. IV patency established. IV site checked: no pain, redness, or swelling. IV flushed thoroughly pre- and post-medication administration (verified by ALLIE Kim). --14:11 Debra Leal R.N. 14:14 11/29/16. BP: 111/66. HR: 105. --14:14 Debra Leal R.N. EKG time: (14:24 PM). EKG was performed by a tech and shown to the ED physician. --14:30 Heather Moura Finger stick glucose: 485 mg/dL. --14:51 Humphrey Lai 14:53 11/29/2016 Insulin REG IVP Response: no adverse reaction (BG now 485). --14:53 Erik Hu R.N. 15:05. Critical value relayed to ED by Lab. Critical value received by ALLIE Valencia. Troponin: 7.44. ED physician notifed of critical value. Orders were received. --15:12 Erik Hu R.N. Finger stick glucose: >500 mg/dL; performed by tech; result shown to the RN. --15:56 Heather Moura 15:59 11/29/16. BP: 110/52. HR: 100. RR: 18. O2 saturation: 97%. --16:00 Akash Alamo R.N. 15:20 11/29/2016 Site #2 started via central line subclavian; one attempt (Tripple Lumen Central Line placed by ). --17:17 Erik Hu R.N. 15:30 11/29/16. ( Central line placed by with no difficulties.). --16:08 Akash Alamo R.N. 15:40 11/29/2016 Heparin IVP 5000 unit given over 2 minute(s) via site #1. Allergies verified and confirmed 5 rights. IV patency established. IV site checked: no pain, redness, or swelling. IV flushed thoroughly pre- and post-medication administration. --16:25 Akash Alamo R.N. 15:58 11/29/2016 Started 6 unit of Insulin Reg Drip IV in bag #1 100 mL; at 6 unit/hr over 4 hour(s) via site #1 via IV pump. Allergies verified and confirmed 5 rights. IV patency established. IV site checked: no pain, redness, or swelling. IV flushed thoroughly pre- and post-medication administration. --15:58 Akash Alamo R.N. 16:00 11/29/2016 Lopressor (Metoprolol Tartrate) IVP 5 mg given over 15 minute(s) via site #1. Allergies verified and confirmed 5 rights. IV patency established. IV site checked: no pain, redness, or swelling. IV flushed thoroughly pre- and post-medication administration. --16:00 Akash Alamo R.N. <<STRICKEN ENTRY-- 16:04 11/29/2016 Started bag #1 1000 mL IV Fluids IV NS (Saline); at 125 mL/hr over 8 hour(s) via site #1 via IV pump. Allergies verified and confirmed 5 rights. IV patency established. IV site checked: no pain, redness, or swelling. IV flushed thoroughly pre- and post-medication administration. --16:04 Akash Alamo R.N. --END STRIKE>> Correction. --17:34 Akash Alamo R.N. <<STRICKEN ENTRY-- 16:05 11/29/2016 IV Fluids IV NS Discontinued: bag #1 infused. Total amount infused: 1000 mL. IV patency established. IV site checked: no pain, redness, or swelling. IV flushed thoroughly. --16:05 Akash Alamo R.N. --END STRIKE>> Correction. --17:33 Akash Alamo R.N. 16:06 11/29/16. BP: 95/44. HR: 80. RR: 18. O2 saturation: 97%. --16:07 Akash Alamo R.N. ( Lopressor is on hold currently only half of dose was given. IV fluids turned up to 200ml/hr). --16:17 Akash Alamo R.N. 16:16 11/29/16. BP: 80/67. HR: 80. RR: 18. O2 saturation: 98%. --16:17 Akash Alamo R.N. 16:20 11/29/16. BP: 87/47. HR: 79. RR: 18. O2 saturation: 99%. --16:20 Akash Alamo R.N. 16:24 11/29/2016 Insulin Reg Drip IV via IV site #1 Rate Changed: bag #1 decreased to 5 unit/hr via IV pump. IV patency established. IV site checked: no pain, redness, or swelling. IV flushed thoroughly. Confirmed 5 Rights (verbal order by to decrease drip to 5 units/hr). --16:24 Akash Alamo R.N. 16:26 11/29/16. BP: 83/59. HR: 81. RR: 18. O2 saturation: 98%. --16:26 Akash Alamo R.N. 16:36 11/29/16. BP: 77/33. HR: 85. RR: 18. O2 saturation: 100%. --16:36 Akash Alamo R.N. ( lisinopril 5mg currently held per BP.). --16:37 Akash Alamo R.N. 16:50 11/29/16. BP: 65/50. HR: 86. RR: 18. O2 saturation: 99%. --16:50 Akash Alamo R.N. ( dopamine started). --16:50 Akash Alamo R.N. 16:04 11/29/2016 Started bag #3 1000 IV Fluids IV NS (Saline); at 125 mL/hr over 8 hour(s) via site #1 via IV pump. Allergies verified and confirmed 5 rights. IV patency established. IV site checked: no pain, redness, or swelling. IV flushed thoroughly pre- and post-medication administration. --17:34 Akash Alamo R.N. 16:05 11/29/2016 IV Fluids IV NS Discontinued: bag #2 infused. Total amount infused: 1000 mL. IV patency established. IV site checked: no pain, redness, or swelling. IV flushed thoroughly. --17:33 Akash Alamo R.N. 16:45 11/29/2016 Started 2.5 mcg of Dopamine Drip IV in bag #1 250 mL; at 2.5 mcg/kg/min over 4 hour(s) via site #2 via IV pump. Allergies verified and confirmed 5 rights. IV patency established. IV site checked: no pain, redness, or swelling. IV flushed thoroughly pre- and post-medication administration. --17:17 Erik Hu R.N. 16:52 11/29/2016 Plavix (Clopidogrel Bisulfate) PO Capsules 300 mg given. Allergies verified and confirmed 5 rights. --16:52 Akash Alamo R.N. 16:54 11/29/16. BP: 83/57. HR: 85. RR: 18. O2 saturation: 99%. --16:54 Akash Alamo R.N. 17:06 11/29/2016 Plavix (Clopidogrel Bisulfate) PO Tablets 300 mg given. Allergies verified and confirmed 5 rights. --17:06 Erik Hu R.N. 16:15. Finger stick glucose: 344 mg/dL; performed by tech; result shown to the RN. --17:09 Heather Moura 17:00 11/29/2016 Dopamine Drip IV via IV site #2 Rate Changed: bag #1 increased to 5 mcg/kg/min via IV pump. IV patency established. IV site checked: no pain, redness, or swelling. IV flushed thoroughly. --17:17 Erik Hu R.N. 17:15 11/29/2016 Dopamine Drip IV via IV site #2 Rate Changed: bag #1 decreased to 2.5 mcg/kg/min via IV pump. IV patency established. IV site checked: no pain, redness, or swelling. IV flushed thoroughly. --17:18 Erik Hu R.N. Finger stick glucose: 320 mg/dL; performed by tech; result shown to the RN. --17:18 Heather Moura 17:20 11/29/2016 Dopamine Drip IV via IV site #2 Rate Changed: bag #1 increased to 4 mcg/kg/min via IV pump. IV patency established. IV site checked: no pain, redness, or swelling. IV flushed thoroughly. --17:20 Erik Hu R.N. <<STRICKEN ENTRY-- 17:27 11/29/16. BP: 118/56. HR: 91. RR: 16. O2 saturation: 97% on room air. --17:28 Erik Hu R.N. --END STRIKE>> Correction. --17:28 Erik Hu R.N. 17:00 11/29/16. BP: 118/56. HR: 91. RR: 16. O2 saturation: 97% on room air. --17:28 Erik Hu R.N. 17:05 11/29/16. BP: 104/52. HR: 96. RR: 16. O2 saturation: 98% on room air. --17:29 Erik Hu R.N. 17:10 11/29/16. BP: 109/53. HR: 95. RR: 16. O2 saturation: 97% on room air. --17:30 Erik Hu R.N. late entry - 15:45. CENTRAL LINE: Central line placement performed by ED physician. Assisted by two nurses. Preparation: consent was obtained from patient, patient placed on pulse oximeter, transportation mechanic, NIBP monitor and central line tray set up. Patient in supine position. Hand hygiene observed, sterile barrier precautions adhered to (cap, mask, gown, gloves and large sterile sheet) and chlorhexidine skin antisepsis used. Triple lumen central line placed to the right subclavian vein. CVC flushed with 10 mL saline. Post procedure: she was clinically the same. CXR interpreted per physician revealed no pneumothorax and good catheter tip position. Estimated blood loss: 0. Total time of assist / procedure: 15 minutes. --17:37 Akash Alamo R.N. 17:37 11/29/16. BP: 124/48. HR: 102. RR: 18. O2 saturation: 94%. --17:37 Akash Alamo R.N. 17:39 11/29/16. BP: 127/43. HR: 102. RR: 18. O2 saturation: 94%. --17:39 Akash Alamo R.N. 17:37 11/29/16. BP: 124/48. HR: 102. RR: 18. O2 saturation: 94%. 17:20 11/29/16. BP: 120/46. HR: 100. RR: 16. O2 saturation: 94% on room air. 17:10 11/29/16. BP: 109/53. HR: 95. RR: 16. O2 saturation: 97% on room air. --17:39 Akash Alamo R.N. 18:34 11/29/2016 Insulin Reg Drip IV Continued: upon transfer at the rate of 5 unit/hr. 85 mL remaining bag #1. IV patency established. IV site checked: no pain, redness, or swelling. IV flushed thoroughly. --18:59 Akash Alamo R.N. 18:35 11/29/2016 Dopamine Drip IV Continued: at the rate of 4 mcg/kg/min. 205 mL remaining bag #1. IV patency established. IV site checked: no pain, redness, or swelling. IV flushed thoroughly. --19:00 Akash Alamo R.N. 18:42 11/29/2016 IV Fluids IV NS Continued: at the rate of 125 mL/hr. 600 mL remaining bag #3. IV patency established. IV site checked: no pain, redness, or swelling. IV flushed thoroughly. --18:57 Akash Alamo R.N. 18:08. Finger stick glucose: 266; performed by [employer]; result shown to the RN. --19:03 Heather Moura. Intake & Output Urine, with return of 550 mL yellow-colored clear urine, sediment noted; odor is normal. --13:19 Heather Moura. DISPOSITION / DISCHARGE 18:06 11/29/2016 Site #[address] upon transfer; patent. Good blood return present. Flushed with 5 mL saline. --18:06 Akash Alamo R.N. 18:06 11/29/2016 Site #[address] upon transfer; patent. Good blood return present. Flushed with 10 mL saline. --18:06 Akash Alamo R.N. Transferred to [facility]. Transported via ambulance by nurse with monitor and IV. Report was given to a nurse via a phone call. Report included patient's care, treatment, medications, reviewed medication reconcilliation, and condition (including any recent changes or anticipated changes). All questions were answered. Report was acknowledged and care was transferred. ( report given to Alida Vargas RN in CCU. Transport is here to take pt.). Patient has no belongings. --18:07 Akash Alamo R.N. 18:07 11/29/16. BP: 123/47. HR: 100. RR: 18. O2 saturation: 96%. Temp: 98.2 F. Pain level now 0/10. --18:07 Akash Alamo R.N. ( Blood glucose 266). --18:08 Akash Alamo R.N. Locked/Released at 12/03/2016 11:22 by Jessi Hein R.N.
--- NOTE | 2016-12-03 11:22 | ED MAR SUMMARY ---
..... Medication Administration Record [facility] [address] [place] [address] Patient: DARI MEHTA Visit ID: [id number] 76y, F Weight: 83.9 kg Height/Length: 63 in BMI: 32.8 ALLERGIES: No Known Drug Allergy Start 12:26 11/29/2016 Debra Leal R.N., Stop 16:05 11/29/2016 Akash Alamo R.N. Medication Administered: IV NS (SALINE), Dose: IV Fluids over 1 hour(s), Rate: 1000 mL/hr, Dispensed: 1000 mL bag, Site: #1 right AC. Medication Ordered: IV NS : initial bolus 1000 mL (1000 mL/hr), then 1000 mL/hr for X3 (NOW). Given 12:44 11/29/2016 Debra Leal R.N. Medication Administered: ZOFRAN [IVP] (ONDANSETRON HCL), Dose: 8 mg IVP over 2 minute(s), Site: #1 right AC. Medication Ordered: Zofran IV 8 mg (NOW). Given 14:11 11/29/2016 Debra Leal R.N. Medication Administered: ASPIRIN [PO], Dose: 325 mg Tablets PO. Medication Ordered: Aspirin PO 325 mg (Do not crush or chew, NOW). Given 14:11 11/29/2016 Debra Leal R.N. Medication Administered: INSULIN REG [IVP], Dose: 10 unit IVP over 2 minute(s), Site: #1 right AC. Medication Ordered: Insulin Reg IV 10 units (HIGH ALERT MEDICATION, NOW). Given 15:40 11/29/2016 Akash Alamo R.N. Medication Administered: HEPARIN [IVP], Dose: 5000 unit IVP over 2 minute(s), Site: #1 right AC. Medication Ordered: Heparin IV : initial bolus 5,000 units, then 15 units/kg/hr (HIGH ALERT MEDICATION, NOW). Start 15:58 11/29/2016 Akash Alamo R.N., Continued Upon Transfer 18:34 11/29/2016 Akash Alamo R.N. Medication Administered: INSULIN REG [IV DRIP], Dose: 6 unit Drip IV over 4 hour(s), Rate: 6 unit/hr, Dispensed: 100 mL bag, Site: #1 right AC. Medication Ordered: Insulin Reg Drip IV : initial bolus 6 units, then 6 units/hr (HIGH ALERT MEDICATION, NOW). Given 16:00 11/29/2016 Akash Alamo R.N. Medication Administered: LOPRESSOR [IVP] (METOPROLOL TARTRATE), Dose: 5 mg IVP over 15 minute(s), Site: #1 right AC. Medication Ordered: Lopressor IV 5 mg (Q 15 MIN X 3, hold for SBP <105). Start 16:04 11/29/2016 Akash Alamo R.N., Continued Upon Disposition 18:42 11/29/2016 Akash Alamo R.N. Medication Administered: IV NS (SALINE), Dose: IV Fluids over 8 hour(s), Rate: 125 mL/hr, Dispensed: 1000 mL bag, Site: #1 right AC. Medication Ordered: IV NS : initial bolus 1000 mL (1000 mL/hr), then 1000 mL/hr for X3 (NOW). Start 16:45 11/29/2016 Erik Hu R.N., Continued Upon Disposition 18:35 11/29/2016 Akash Alamo R.N. Medication Administered: DOPAMINE [IV DRIP], Dose: 2.5 mcg Drip IV over 4 hour(s), Rate: 2.5 mcg/kg/min, Dispensed: 250 mL bag, Site: #2 subclav central line(see procedure note). Medication Ordered: DOPamine Drip IV : 2.5mcg/kg/min (NOW). Given 16:52 11/29/2016 Akash Alamo R.N. Medication Administered: PLAVIX [PO] (CLOPIDOGREL BISULFATE), Dose: 300 mg Capsules PO. Medication Ordered: Plavix PO 300 mg (HIGH ALERT MEDICATION, NOW). Given 17:06 11/29/2016 Erik Hu R.N. Medication Administered: PLAVIX [PO] (CLOPIDOGREL BISULFATE), Dose: 300 mg Tablets PO. Medication Ordered: Plavix PO 300 mg (HIGH ALERT MEDICATION, NOW).
--- NOTE | 2016-12-03 11:22 | ED MED RECONCILIATION SUMMARY ---
Patient: DARI MEHTA Medication Reconciliation Report [facility] VisitID: [id number] [address] [place] [address] 76y, F Registration Date/Time: 11/29/2016 Weight: 83.9 kg Height/Length: 63 in. BMI: 32.8 ALLERGIES: No Known Drug Allergy The patient's Home Medications are listed below: THE FOLLOWING MEDICATIONS NEED TO BE RECONCILED: Levothyroxine 50 mcg daily Lisinopril 20 mg daily Metformin 500 mg daily The source(s) of the original Home Medication information: Not obtained. The following Medications were given to the patient in the Emergency Department: IV NS IV Fluids bolus 0, then 1000 mL/hr, administered: 11/29/2016 12:26:00 PM Zofran [IVP] IVP 8 mg, administered: 11/29/2016 12:44:00 PM Aspirin [PO] PO 325 mg, administered: 11/29/2016 2:11:00 PM Insulin REG [IVP] IVP 10 unit, administered: 11/29/2016 2:11:00 PM Insulin Reg [IV DRIP] Drip IV bolus 0, then 6 unit 6 unit/hr, administered: 11/29/2016 3:58:00 PM Lopressor [IVP] IVP 5 mg, administered: 11/29/2016 4:00:00 PM IV NS IV Fluids bolus 0, then 125 mL/hr, administered: 11/29/2016 4:04:00 PM Heparin [IVP] IVP 5000 unit, administered: 11/29/2016 3:40:00 PM Plavix [PO] PO 300 mg, administered: 11/29/2016 4:52:00 PM Plavix [PO] PO 300 mg, administered: 11/29/2016 5:06:00 PM Dopamine [IV Drip] Drip IV bolus 0, then 2.5 mcg 2.5 mcg/kg/min, administered: 11/29/2016 4:45:00 PM The following Medications were prescribed to the patient: None.
--- NOTE | 2016-12-03 11:22 | ED DISCHARGE INSTRUCTIONS ---
Patient: DARI MEHTA General Instructions [facility] VisitID: [id number] [address] [place] [address] 76y, F Registration Date/Time: 11/29/2016 Type I diabetic ketoacidosis without coma. Profound hypotension due to drugs. Acute myocardial infarction with elevated markers, EKG changes and no ST elevation (NSTEMI). Aspirin administered in ED. (Electronically signed by Yue Coburn MD 11/29/2016 19:23)
--- NOTE | 2016-12-03 11:22 | ED MED RECONCILIATION SUMMARY ---
Patient: DARI MEHTA Medication Reconciliation Report [facility] VisitID: [id number] [address] [place] [address] 76y, F Registration Date/Time: 11/29/2016 Weight: 83.9 kg Height/Length: 63 in. BMI: 32.8 ALLERGIES: No Known Drug Allergy The patient's Home Medications are listed below: THE FOLLOWING MEDICATIONS NEED TO BE RECONCILED: Levothyroxine 50 mcg daily Lisinopril 20 mg daily Metformin 500 mg daily The source(s) of the original Home Medication information: Not obtained. The following Medications were given to the patient in the Emergency Department: IV NS IV Fluids bolus 0, then 1000 mL/hr, administered: 11/29/2016 12:26:00 PM Zofran [IVP] IVP 8 mg, administered: 11/29/2016 12:44:00 PM Aspirin [PO] PO 325 mg, administered: 11/29/2016 2:11:00 PM Insulin REG [IVP] IVP 10 unit, administered: 11/29/2016 2:11:00 PM Insulin Reg [IV DRIP] Drip IV bolus 0, then 6 unit 6 unit/hr, administered: 11/29/2016 3:58:00 PM Lopressor [IVP] IVP 5 mg, administered: 11/29/2016 4:00:00 PM IV NS IV Fluids bolus 0, then 125 mL/hr, administered: 11/29/2016 4:04:00 PM Heparin [IVP] IVP 5000 unit, administered: 11/29/2016 3:40:00 PM Plavix [PO] PO 300 mg, administered: 11/29/2016 4:52:00 PM Plavix [PO] PO 300 mg, administered: 11/29/2016 5:06:00 PM Dopamine [IV Drip] Drip IV bolus 0, then 2.5 mcg 2.5 mcg/kg/min, administered: 11/29/2016 4:45:00 PM The following Medications were prescribed to the patient: None.
--- NOTE | 2016-12-03 11:22 | ED DISCHARGE INSTRUCTIONS ---
Patient: DARI MEHTA General Instructions 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 Profound hypotension due to drugs. Acute myocardial infarction with elevated markers, EKG changes and no ST elevation (NSTEMI). Aspirin administered in ED. (Electronically signed by Yue Coburn MD 11/29/2016 19:23)
== END 2016-11-29 18:45 | disposition home or self-care (01) ==
LOC: ED SRH 11:57 → TRANS SRH 15:03 → ED SRH 15:03
DX: I21.4 Non-ST elevation (NSTEMI) myocardial infarction (principal); E10.10 Type 1 diabetes mellitus with ketoacidosis without coma; I95.2 Hypotension due to drugs; I10 Essential (primary) hypertension